=== PATIENT | female | born 1955 | race Hispanic/Latino ===

== ENCOUNTER → 2020-06-02 | Outpatient (CLI) | payer OTHER ==
[~2020-06-02] MED LIST: LEVO100T12 PO
== END ==
LOC: DAH 10:00 → EDSTATUS 06-06 15:58
PROVIDERS: ATTEND Internal Medicine
DX: Z20.828 Contact with and (suspected) exposure to other viral communicable diseases (principal); R93.3 Abnormal findings on diagnostic imaging of other parts of digestive tract; R10.13 Epigastric pain; R93.2 Abnormal findings on diagnostic imaging of liver and biliary tract
CPT/HCPCS: C9803; U0003

== ENCOUNTER 2020-06-17 10:12 | Day surgery (SDC) | payer OTHER ==
[~2020-06-17] VITALS: Ht 157.5 cm; Wt 57.6 kg
[2020-06-17] VITALS (9 sets, daily range): BP systolic 100–120; BP diastolic 51–72
[~2020-06-17 10:12] MED LIST changes: +LEVOFLOXACIN 500 MG/D5W 100 ML 100 ML ONE; +ONDANSETRON HCL 4 MG/2 ML VIAL ONE; +PHENYLEPHRINE HCL 10 MG/ML 1ML VIAL IV ONE; +PROPOFOL 10 MG/ML 20ML VIAL IV ONE; +SODIUM CHLORIDE 0.9% 1000ML 1,000 ML IV ONE
--- NOTE | 2020-06-17 10:25 | NUR ---
PAIN PT STATES HAVING PAIN TO LEFT SIDE OF ABDOMEN. SOFT TO TOUCH. INFORMED DR. OCAMPO. STATES OK TO SEND HOME IF PT HAS NO FEVER, CHILLS. IF PAIN WORSENS AT HOME,PT TO CALL MD. PT VERBALIZED UNDERSTANDING.
== END 2020-06-17 11:05 | disposition home or self-care (01) ==
LOC: ENDO 10:12 → DAH 10:13 → ENDO 11:05
PROVIDERS: ATTEND Internal Medicine
DX: R10.13 Epigastric pain (principal); K86.2 Cyst of pancreas; K31.89 Other diseases of stomach and duodenum; E78.5 Hyperlipidemia, unspecified; K21.9 Gastro-esophageal reflux disease without esophagitis; M81.0 Age-related osteoporosis without current pathological fracture
CPT/HCPCS: 36415; 43238; 82150 ×2; 82378 ×2; A4215 ×2; A4221; A4222; A4223; A4606; A4620; A4663; J1956; J2370; J2405; J2704 ×3; J7030